=== PATIENT | female | born 1955 | race Caucasian/White ===

== ENCOUNTER 2019-05-15 19:27 | Inpatient (IN) | payer MEDICARE ==
[~2019-05-15] VITALS: Ht 162.6 cm; Wt 84.4 kg
[2019-05-15] MEDS ORDERED: NITROGLYCERIN 0.4MG TABLET SL SL ONE (20:45)
[2019-05-15] MEDS ORDERED: ASPIRIN 81MG TABLET PO ONE (20:45)
[2019-05-15] MEDS ORDERED: NYSTATIN 100,000 UNITS/GM CREAM 15GM TOP SCH ×2 (21:00→23:30)
[2019-05-15 22:23] LABS: BASOPHILS % 0.6 % (0.0-2.0); EOSINOPHILS % 14.1 % (0.0-5.0); HEMATOCRIT. 36.9 % (36.0-48.0); HEMOGLOBIN. 12.4 g/dL (12.0-16.0); LYMPHOCYTES % 24.2 % (20.0-50.0); MEAN CORPUSCULAR HEMOGLOBIN 29.3 pg (28.0-32.0); MEAN CORPUSCULAR VOLUME 86.8 fL (81.0-99.0); MEAN PLATELET VOLUME 8.2 fl (7.4-10.4); MONOCYTES % 6.7 % (2.0-8.0); NEUTROPHILS % 54.4 % (40.0-76.0); PLATELET 351 x1000/uL (130-400); RED BLOOD CELL COUNT 4.25 mill/uL (4.2-5.4); RED CELL DISTRIBUTION WIDTH 16.7 % (11.6-14.6)
[2019-05-15 22:25] LABS: CHLORIDE 107 mEq/L (98-107)
[2019-05-15 23:19] LABS: INR 0.9
[2019-05-16] VITALS: BP 118/56
[2019-05-16] MEDS ORDERED: ACETAMINOPHEN 325MG TABLET PO PRN (02:15)
[2019-05-16] MEDS ORDERED: ATORVASTATIN CALCIUM 40MG TABLET PO SCH (02:15)
[2019-05-16] MEDS ORDERED: ONDANSETRON HCL 4MG/2ML INJ IV PRN (02:15)
[2019-05-16] MEDS ORDERED: CLONIDINE 0.1MG TABLET PO PRN (02:15)
[2019-05-16] MEDS ORDERED: NITROGLYCERIN 0.4MG TABLET SL SL PRN (02:15)
[2019-05-16] MEDS ORDERED: POTASSIUM CHLORIDE 20MEQ TABLET SR PO SCH (02:15)
[2019-05-16 05:18] VITALS: BP 113/61
[2019-05-16] MEDS ORDERED: IBUP-2741 PO (05:38)
[2019-05-16] MEDS ORDERED: ASPI-986 PO (05:38)
[2019-05-16 08:00] VITALS: BP 125/49
[2019-05-16 08:52] LABS: *AMPHETAMINES SCREEN URINE NEGATIVE (NEGATIVE); *BARBITURATES SCREEN URINE NEGATIVE (NEGATIVE); *COCAINE SCREEN URINE NEGATIVE (NEGATIVE)
[2019-05-16 08:53] LABS: CANNABINOID URINE SCREEN NEGATIVE (NEGATIVE); METHADONE URINE SCREEN NEGATIVE (NEGATIVE); OPIATES URINE SCREEN NEGATIVE (NEGATIVE); PHENCYCLIDINE URINE SCREEN NEGATIVE (NEGATIVE)
[2019-05-16 08:54] LABS: *BENZODIAZEPINES SCREEN URINE NEGATIVE (NEGATIVE)
[2019-05-16] MEDS: HEPARIN 5000 UNITS/ML VIAL SUBCUT SCH ×2 (09:00→21:00)
[2019-05-16] MEDS: FUROSEMIDE 40MG/4ML VIAL IVP SCH ×3 (11:45→16:20)
[2019-05-16 12:00] VITALS: BP 116/45
[2019-05-16] MEDS: ASPIRIN 81MG TABLET PO SCH (13:03)
[2019-05-16] MEDS: LISINOPRIL 5MG TABLET PO SCH (13:04)
[2019-05-16] MEDS: RISPERIDONE 1MG TABLET PO SCH ×2 (15:00→23:00)
[2019-05-16 16:00] VITALS: BP 118/46
[2019-05-16] MEDS: IBUPROFEN 200MG TABLET PO PRN (22:06)
[2019-05-17] VITALS: BP 99/44
[2019-05-17 04:00] VITALS: BP 103/50
[2019-05-17] MEDS: FUROSEMIDE 40MG/4ML VIAL IVP SCH (07:15)
[2019-05-17 08:00] VITALS: BP 117/50
[2019-05-17] MEDS: RISPERIDONE 1MG TABLET PO SCH (08:32)
[2019-05-17] MEDS: HEPARIN 5000 UNITS/ML VIAL SUBCUT SCH (08:33)
[2019-05-17 09:58] LABS: BASOPHILS % 0.9 % (0.0-2.0); EOSINOPHILS % 12.1 % (0.0-5.0); HEMATOCRIT. 32.3 % (36.0-48.0); LYMPHOCYTES % 24.9 % (20.0-50.0); MEAN CORPUSCULAR HEMOGLOBIN 29.8 pg (28.0-32.0); MEAN CORPUSCULAR VOLUME 87.7 fL (81.0-99.0); MEAN PLATELET VOLUME 8.4 fl (7.4-10.4); MONOCYTES % 6.6 % (2.0-8.0); NEUTROPHILS % 55.5 % (40.0-76.0); PLATELET 291 x1000/uL (130-400); RED BLOOD CELL COUNT 3.68 mill/uL (4.2-5.4); RED CELL DISTRIBUTION WIDTH 16.5 % (11.6-14.6)
[2019-05-17] MEDS: LISINOPRIL 5MG TABLET PO SCH (10:02)
[2019-05-17] MEDS: ASPIRIN 81MG TABLET PO SCH (10:02)
[2019-05-17] MEDS: IBUPROFEN 200MG TABLET PO PRN (10:03)
[2019-05-17 10:15] LABS: CHLORIDE 106 mEq/L (98-107)
[2019-05-17 10:26] LABS: LDL CHOLESTEROL 72 mg/dL (5-100)
[2019-05-17 10:27] LABS: HDL CHOLESTEROL 40 mg/dL (40-59); T4 FREE 1.11 ng/dL (0.76-1.46)
[2019-05-17] MEDS ORDERED: RISP1 PO (10:56)
[2019-05-17 12:00] VITALS: BP 115/50
[2019-05-17 12:52] VITALS: BP 115/50
== END 2019-05-17 13:38 | disposition home or self-care (01) | DRG 206 ==
LOC: ER 19:27 → 5WST 23:32 → EDBEDREQTM 23:37 → EDBEDREQ 23:37 → CANRESERV 05-16 01:50 → ENRESERV 05-16 01:50
PROVIDERS: ADMIT Internal Medicine; ATTEND Internal Medicine
DX: M94.0 Chondrocostal junction syndrome [Tietze] (principal); F23 Brief psychotic disorder; I10 Essential (primary) hypertension; R60.0 Localized edema; M25.512 Pain in left shoulder; Z88.0 Allergy status to penicillin; Z88.5 Allergy status to narcotic agent; Z91.013 Allergy to seafood; Z91.09 Other allergy status, other than to drugs and biological substances; Z59.0 Homelessness; I25.2 Old myocardial infarction
CPT/HCPCS: 36415; 71045; 80053; 80061; 80305; 83036; 83735; 83880; 84439; 84443; 84484; 85025; 93005; 93306; 99285; J1644; J1940